=== PATIENT | male | born 2000 | race American Indian/Alaskan Native ===

== ENCOUNTER 2022-03-01 10:42 | Emergency (ER) | payer OTHER, MEDICARE ==
[2022-03-01 12:15] LABS: Basophils % (Auto) 0.4 % (0.0-1.8); Eosinophils # (Auto) 0.1 K/mm3 (0.0-0.4); Eosinophils % (Auto) 1.6 % (0.0-4.3); Hematocrit 43.8 % (35.5-45.6); Lymphocytes # (Auto) 1.2 K/mm3 (1.2-5.4); Lymphocytes % (Auto) 34.2 % (13.4-35.0); Mean Corpuscular HGB Conc 34 % (32-34); Mean Corpuscular Volume 84 fl (84-94); Monocytes # (Auto) 0.2 K/mm3 (0.0-0.8); Monocytes % (Auto) 6.7 % (0.0-7.3); Platelet Count 257 K/mm3 (140-440); Red Blood Count 5.22 M/mm3 (3.65-5.03); Red Cell Distribution Width 14.3 % (13.2-15.2)
--- NOTE | 2022-03-01 12:21 | Consultation ---
History of Present Illness - Reason for Consult Consult date: 03/01/22 Reason for consult: hallucinations - History of Present Psychiatric Illness The patient was seen today. He is a 21y/o high functioning autistic patient. He is calm, cooperative and polite. He is a little jumpy. He says his dad brought him for hearing voices. The patient says the voices ar e telling him to do a lot of bad things, like end his life. He says "there is also this good voice telling me things will be alright." He does endorse feeling suicidal, he says "only because the voices are telling me to." The patient says it took him a long time to get help because of his autism diagnoses. He says "nobody believed me because of that diagnoses." He denies any other diagnoses. He says he's been off meds for about a year that he was taking for autism. He could not remember the name. The patient denies any illicit drug use, alcohol or nicotine. He says "none of that has never appealed to me." He says his mother passed, and he lives with his father. PAST PSYCHIATRIC HISTORY Diagnoses: Autism Suicide attempts or Self-harm behavior: denies Prior psychiatric hospitalizations: Denies Substance Abuse history: Denies Previous psychiatric medications tried: could not recall Outpatient treatment: Denies PAST MEDICAL HISTORY: None reported Family Psychiatric History: None reported or documented SOCIAL HISTORY Marital Status: Single Living Arrangements: Lives with dad Employment Status: Unemployed Access to guns/weapons: Denies Education: History of Abuse: Denies Legal History: Unknown REVIEW OF SYSTEMS Constitutional: Negative for weight loss ENT: Negative for stridor Respiratory: Negative for cough or hemoptysis All other systems reviewed and are negative MENTAL STATUS EXAMINATION General Appearance and Behavior: Age appropriate, good hygiene, wearing appropriate clothes, good eye contact, jumpy, cooperative, polite Cooperation: Participating/engaged, but Guarded Psychomotor Behavior: Psychomotor normal Mood: OK Affect and affective range: congruent with stated mood Thought Process: Circumstantial Thought Content: hallucinations Speech: normal tone and pace Suicidal Ideation: Yes Homicidal Ideation: Denies Hallucinations: Auditory Delusions: None elicited Impulse Control: Limited Insight and Judgment: Limited insight and judgment Memory: Limited Attention: attentive Orientation: Alert, oriented Assessment and Plan Delusional disorder Treatment Plan 1013 Risperidone 0.5mg po BID Trazodone 50mg po qhs Medical: per primary Sitter: Defer to primary Disposition: Recommend acute psychiatric inpatient treatment Will Follow. Thanks Case staffed with Dr. Tejada Medications and Allergies Allergies Allergy/AdvReac Type Severity Reaction Status Date / Time No Known Allergies Allergy Unverified 03/01/22 10:44 Mental Status Exam - Vital signs Last Vital Signs Temp 98.8 F 03/01/22 10:46 Pulse 103 H 03/01/22 10:46 Resp 16 03/01/22 10:46 BP 134/72 03/01/22 10:46 Pulse Ox 100 03/01/22 10:47 Results Result Diagrams: 03/01/22 11:43 All other labs normal.
[2022-03-01 12:39] LABS: BUN/Creatinine Ratio 10; Blood Urea Nitrogen 11 mg/dL (9-20); Hemolysis Index 4
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
[2022-03-01] MEDS: risperiDONE 0.25 MG TAB PO SCH ×2 (13:08→22:00)
[2022-03-01] MEDS ORDERED: ACETAMINOPHEN 325 MG TAB PO PRN (18:58)
[2022-03-01] MEDS ORDERED: ALUM-MAG HYDROXIDE-SIMETHICONE 200-200-20MG/5ML ORAL LIQD 30 ML PO PRN (18:58)
[2022-03-01] MEDS ORDERED: MAGNESIUM HYDROXIDE (MOM) ORAL LIQD UDC PO PRN (18:58)
[2022-03-01 20:42] LABS: Bilirubin,Urine NEG (Negative); Blood,Urine NEG (Negative); Color,Urine Straw (Yellow); Mucus,Urine FEW /HPF; Protein,Urine <15 mg/dL mg/dL (Negative); Urobilinogen,Urine < 2.0 mg/dL (<2.0); WBC,Urine < 1.0 /HPF (0.0-6.0)
[2022-03-01 20:50] LABS: Amphetamine Screen,Urine Negative; Benzodiazepines Screen,Urine Negative; Cannabinoid Screen,Urine Negative; Cocaine Screen,Urine Negative; Methadone Screen,Urine Negative; Opiate Screen,Urine Negative
[2022-03-01] MEDS ORDERED: traZODone 50 MG TAB PO SCH (22:00)
--- NOTE | 2022-03-02 09:06 | Progress Note ---
Subjective - Reason for Consult Consult date: 03/02/22 Reason for consult: hallucinations - Chief Complaint Chief complaint: The patient was seen today. He endorses still hearing the voices. The patient says there is more than one voice. He says "I can't interact with them. There is a lot of static." He says "but one seems to be telling me to hurt myself, but the other is telling me not too." The patient says he is depressed. He says "this is how they are making me feel." REVIEW OF SYSTEMS Constitutional: Negative for weight loss ENT: Negative for stridor Respiratory: Negative for cough or hemoptysis All other systems reviewed and are negative MENTAL STATUS EXAMINATION General Appearance and Behavior: Age appropriate, good hygiene, wearing appropriate clothes, good eye contact, jumpy, cooperative, polite Cooperation: Participating/engaged, but Guarded Psychomotor Behavior: Psychomotor normal Mood: OK Affect and affective range: congruent with stated mood Thought Process: Circumstantial Thought Content: hallucinations Speech: normal tone and pace Suicidal Ideation: Yes Homicidal Ideation: Denies Hallucinations: Auditory Delusions: None elicited Impulse Control: Limited Insight and Judgment: Limited insight and judgment Memory: Limited Attention: attentive Orientation: Alert, oriented Assessment and Plan Delusional disorder Treatment Plan 1013 Increase Risperidone 1mg po BID Start Prozac 10mg po daily Trazodone 50mg po qhs Medical: per primary Sitter: Defer to primary Disposition: Recommend acute psychiatric inpatient treatment Will Follow. Thanks Case staffed with Dr. Tejada Mental Status Exam - Vital signs Last Vital Signs Temp 98.5 F 03/02/22 02:00 Pulse 77 03/02/22 02:00 Resp 16 03/02/22 02:00 BP 118/81 03/02/22 02:00 Pulse Ox 98 03/02/22 02:00
[2022-03-02] MEDS ORDERED: FLUoxetine 10 MG TAB PO SCH (10:00)
[2022-03-02] MEDS ORDERED: risperiDONE 1 MG TAB PO SCH (10:00)
[2022-03-02 11:06] VITALS: BP 126/89
--- NOTE | 2022-03-02 12:24 | Event Note ---
Date: 03/02/22 The patient continues to receive inpatient psychiatric treatment. He is still psychotic. Vital signs have remained stable and there have been no overnight occurrences. We will continue to monitor medically while awaiting for psychiatric disposition.
== END 2022-03-02 19:30 ==
LOC: EEVIPCON 10:42 → ED 10:42
DX: R44.1 Visual hallucinations (principal); Z20.822 Contact with and (suspected) exposure to COVID-19
CPT/HCPCS: 36415; 80048; 80307; 81001; 85025; 99285; U0003; 80320; G0480